=== PATIENT | female | born 1930 | race Caucasian/White ===

== ENCOUNTER 2018-09-27 07:48 | Emergency (ER) | payer MEDICARE ==
[2018-09-27] MEDS ORDERED: SODIUM BICARBONATE 8.4% INJ 50 ML SYRINGE ONE (07:49)
[2018-09-27] MEDS ORDERED: SODIUM BICARBONATE 4.2% INJ 10 ML SYRINGE ONE (07:49)
[2018-09-27] MEDS ORDERED: EPINEPHrine 1MG/10ML SYRINGE 1.5IN IV STA ×6 (07:51→09:21)
[2018-09-27] MEDS ORDERED: NOREPINEPHRINE 4 MG/4 ML AMP As Ordered ONE (08:09)
[2018-09-27] MEDS ORDERED: NOREPINEPHRINE BITARTRATE 8 MG in D5W 492 ML IV SCH (08:15)
[2018-09-27] MEDS ORDERED: EPINEPHrine INJ 1 MG/ML 1ML AMP As Ordered ONE (08:18)
[2018-09-27] MEDS ORDERED: EPINEPHrine 1MG/10ML SYRINGE 1.5IN As Ordered ONE ×2 (08:19→08:41)
[2018-09-27 08:27] LABS: HEMOGLOBIN 13.2 g/dl (12.0-15.5); MEAN CORPUSCULAR HEMOGLOBIN 32.8 pg (27.0-33.0); MEAN CORPUSCULAR HGB CONC 31.4 g/dl (32.0-36.5); MEAN CORPUSCULAR VOLUME 104.5 fl (80.0-96.0); RED BLOOD COUNT 4.02 10^6/uL (4.00-5.40)
[2018-09-27 08:50] LABS: ALBUMIN 2.6 GM/DL (3.2-5.2); BILIRUBIN,DIRECT 0.2 MG/DL (0.0-0.2); BILIRUBIN,TOTAL 0.6 MG/DL (0.2-1.0); CALCIUM LEVEL 11.7 MG/DL (8.8-10.2); CK-MB VALUE MASS 2.9 NG/ML (<3.6); CREATININE FOR GFR 1.47 MG/DL (0.55-1.30); FREE T4 0.79 NG/DL (0.76-1.46); GLOMERULAR FILTRATION RATE 35.8 (>32); MB/CK RELATIVE INDEX 2.4 (< OR =4); POTASSIUM SERUM 4.1 MEQ/L (3.5-5.1); THYROID STIMULATING HORMONE 6.97 uIU/ML (0.358-3.740); TOTAL PROTEIN 5.5 GM/DL (6.4-8.2); TROPONIN I 0.84 NG/ML (< 0.10)
--- NOTE | 2018-09-27 08:51 | REP ---
Portable chest x-ray: Single view. History: Evaluate endotracheal tube. No comparison chest x-rays. Findings: Endotracheal tube is seen in good position just above the transverse aorta. EKG electrodes are seen. The heart is mildly enlarged. There is extensive opacification throughout most of the right hemithorax consistent with advanced pneumonia. There is a large infiltrate in the left lower lobe as well behind the heart. Pleural angles are sharp. Pulmonary vasculature is not increased. Impression: Findings consistent with extensive pneumonia bilaterally. Endotracheal tube in good position. Electronically Signed by Donovan Singh MD 09/27/2018 08:43 A
[2018-09-27 08:54] LABS: INR 2.17
[2018-09-27 08:56] LABS: PARTIAL THROMBOPLASTIN TIME 116.7 SECONDS (25.0-38.4)
[2018-09-27 09:11] LABS: PLATELET COUNT, AUTOMATED 23 10^3/uL (150-450); WHITE BLOOD COUNT 14.2 10^3/uL (4.0-10.0)
[2018-09-27 09:15] LABS: ATYPICAL LYMPH 2 % (0-5); EOSINOPHILS 1 % (0-5); LYMPHOCYTES 70 % (16-52); MONOCYTES 3 % (0-8); NEUTROPHILS 23 % (35-75)
[2018-09-27 09:16] LABS: PLATELET ESTIMATE MARKED DECREASE (NORMAL)
[2018-09-27 09:19] LABS: BURR CELLS 2+; POIKILOCYTOSIS 2+
[2018-09-27] MEDS ORDERED: EPINEPHrine HCL INJ 1 MG in D5W 240 ML IV SCH (09:30)
--- NOTE | 2018-09-28 17:12 | ECGEPIP ---
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
== END 2018-09-27 11:30 | disposition expired ==
LOC: EDBD 07:48 → EDSEX 07:48 → M ED 07:48
DX: I46.9 Cardiac arrest, cause unspecified (principal); R00.0 Tachycardia, unspecified; I49.3 Ventricular premature depolarization; I44.4 Left anterior fascicular block; I45.10 Unspecified right bundle-branch block; I10 Essential (primary) hypertension; E78.5 Hyperlipidemia, unspecified